=== PATIENT | female | born 1980 | race Caucasian/White ===

== ENCOUNTER 2022-09-14 14:04 | Emergency (ER) | payer SELFPAY ==
[2022-09-14] VITALS (9 sets, daily range): BP systolic 104–146; BP diastolic 65–95
[~2022-09-14] VITALS: Ht 157.5 cm; Wt 77.1 kg
[~2022-09-14 14:04] MED LIST: IBUPROFEN600 MG PO; KEFLEX500 MG PO; KLONOPIN0.5 MG PO; LORTAB 7.57.5 MG PO; MACROBID100 MG PO; MACRODANTIN100 MG PO; PRE-NATAL PO; PRENATAL1 TA1 PO; PROCARDIA10 MG PO; PROZAC10 MG PO; ZOLOFT50 MG PO; ZYPREXA PO
[2022-09-14] MEDS ORDERED: MOTRIN800 MG PO (16:28)
[2022-09-14] MEDS ORDERED: CYCLOBENZAPRINE10 MG PO (16:28)
== END 2022-09-14 16:45 | disposition home or self-care (01) | DRG 605 ==
LOC: ED 14:04
DX: S30.0XXA Contusion of lower back and pelvis, initial encounter (principal); W19.XXXA Unspecified fall, initial encounter